=== PATIENT | female | born 1975 | race Caucasian/White ===

== ENCOUNTER → 2023-04-27 07:02 | Outpatient (REF) | payer OTHER, SELFPAY | LOC: HWRCS 07:02 | PROVIDERS: ATTENDING PHYSICIAN Nurse Practitioner | DX: I36.1 Nonrheumatic tricuspid (valve) insufficiency (principal); I27.20 Pulmonary hypertension, unspecified | CPT/HCPCS: 93306 ==

== ENCOUNTER → 2023-09-17 09:19 | Outpatient (REF) | payer OTHER, SELFPAY | LOC: HWRAD 09:19 | PROVIDERS: ATTENDING PHYSICIAN Obstetrics & Gynecology Gynecology; FAMILY PHYSICIAN Nurse Practitioner | DX: N93.9 Abnormal uterine and vaginal bleeding, unspecified (principal) | CPT/HCPCS: 76830; 76856 ==

== ENCOUNTER → 2024-03-01 07:09 | Outpatient (REF) | payer OTHER, SELFPAY | LOC: HWWDC 07:09 | PROVIDERS: ATTENDING PHYSICIAN Obstetrics & Gynecology Gynecology; FAMILY PHYSICIAN Nurse Practitioner | DX: Z12.31 Encounter for screening mammogram for malignant neoplasm of breast (principal) | CPT/HCPCS: 77063; 77067 ==

== ENCOUNTER 2024-03-15 09:36 | Emergency (ER) | payer OTHER, SELFPAY ==
[2024-03-15 09:41] VITALS: BP 133/70
[2024-03-15 09:46] LABS: Glucose - Point of Care 152 mg/dl (70-99)
--- NOTE | 2024-03-15 10:09 | ED.GENMED ---
ED Provider Triage
-
Patient seen by provider in Triage?: Seen in Triage
Attestation: A medical screening examination has been initiated by a qualified medical provider. Based on the assessment performed at this time, it has been determined that an emergent medical condition may exist and the patient has been informed
that further medical evaluation and possible additional diagnostic testing may be needed.
HPI: 48yoF here after a fall. Tripped and fell forward at 7am. Struck head, no LOC. Seen by school nurse and BP low so sent to urgent care. Subsequently referred to ED. C/o nausea. Maramec like she had to pass out in triage but denies dizziness
currently. Denies headache.
GENERAL: Alert , in no apparent distress
EYE: No visual abnormalities.
NECK: Trachea midline
ENT: No visible abnormalities.
LUNGS: No acute respiratory distress
NEUROLOGICAL: Alert and oriented
SKIN: Skin intact. No visible changes.
MUSCULOSKELETAL: Moving extremities normally
PSYCH: Normal and appropriate interaction.
This is a medical evaluation conducted in person to initiate diagnostic evaluation and provide initial therapeutics. Please see further documentation by the treating clinician.
Frontal abrasions on exam. Tdap UTD. Patient denies headache and GCS 15. Will defer head imaging in triage.
History of Present Illness
General
Chief Complaint: Head Injury
Source: patient
Exam Limitations: none
Time Seen by Provider: 03/15/24 11:11
History of Present Illness
History of Present Illness:
48yoF with no significant past medical history presenting for evaluation after a fall. Patient was walking into school this morning around 7 AM. She tripped and fell forward striking her head and left outstretched hand and left knee. No loss of
consciousness. Patient was seen by the school nurse afterwards and her blood pressure was reportedly low. She was told to go to urgent care for evaluation. Urgent care subsequently referred her to the ED. Patient currently complains of some
nausea. She has some mild soreness in her forehead and the location of some abrasions. She denies any headache, vomiting, dizziness, visual changes, neck pain. She is not on any blood thinners. Tdap UTD.
Past History
Social History
Tobacco: Non-smoker
Personal:
Living: with family
Employment: Employed
Phy Exam
General Physical Exam
General Presentation: well appearing and no apparent distress
General age: appears stated age
General Skin: warm and dry
General Habitus: normal
General Mental: alert
ENT Exam
ENT Exam: normocephalic and other (No cervical spine tenderness. )
Additional ENT: Forehead abrasions noted. None that require suture repair.
Eye Exam
Eye Exam: PERRL
Neurological Exam
Neurological Exam: alert and no motor deficits
[place] Coma Scale
Eye Opening: Spontaneous
Verbal Response: Oriented
Motor Response: Obeys Commands
GCS Total Score: 15
Musculoskeletal Exam
Musculoskeletal Exam: other (Abrasion noted to L knee)
Skin Exam
Skin Exam: normal color and warm/dry
Psychiatric Exam
Psychiatric Exam: normal mood/affect
Course
Orders/Labs/Results
Orders:
Abnormal Lab Results
03/15/24
09:45
POC Glucose 152 H mg/dl
(70-99)
Vital Signs
Initial and Last Documented VS:
Initial Vital Signs
Temp Pulse Resp BP Pulse Ox
98.7 F 79 16 133/70 98
03/15/24 09:41 03/15/24 09:41 03/15/24 09:41 03/15/24 09:41 03/15/24 09:41
Last Documented Vital Signs
Temp Pulse Resp BP Pulse Ox
98.7 F 79 16 133/70 98
03/15/24 09:41 03/15/24 09:41 03/15/24 09:41 03/15/24 09:41 03/15/24 09:41
MDM/Problems Addressed
Differential Diagnosis Includes:
48yoF here after a fall with head strike. No LOC. Has some forehead abrasions. C/o nausea. Denies headache, vomiting, dizziness. Patient is well-appearing in no acute distress. Vital signs are stable. No other external signs of head trauma. GCS
is 15 and there are no focal neuro deficits. Cervical spine cleared via Nexus criteria.
Patient was initially seen in triage and reassessed 1 hour later. Patient reports improvement in her symptoms and is requesting discharge. Very low clinical suspicion of intracranial hemorrhage/skull fracture. Will defer head imaging at this time,
patient in agreement with this. Wounds cleaned and dressed by nursing staff. Advised follow-up EP and strict ED return precautions discussed. She was discharged in stable condition.
*Critical Care Note
Total Time (30-74mins, 75-104mins- exclusive of procedures): Not Applicable
ED Attending Note
-
Portions of this chart may have been created with voice recognition software.� Occasional wrong word or��sound alike� substitutions may have occurred due to the inherent limitations of voice recognition software.
Discharge Plan
Departure
Patient Disposition: Home (Routine Discharge)
Date of Disposition: 03/15/24
Time of Disposition: 11:18
Patient with high blood pressure during this ER visit?: No
Discharge Problem:
Closed head injury, Abrasion of face, Abrasion of left knee
Instructions: Head injury in adults
Prescriptions:
No Action
hydrocodone-acetaminophen 5 MG/500 MG tablet
1 tab PO .Q4-6HPRN PRN (Reason: PAIN) Qty: 20 0RF
Stand Alone Forms: Return to Work
Activity Restrictions/Additional Instructions:
Take Tylenol and ibuprofen as needed for pain. Apply ice to affected area.
Please follow-up with your family doctor. Return to the ER with any worsening symptoms, severe headache, or confusion.
Interventions
Interventions:
*Risk Screen - Suicide Last Done: 03/15/24 09:41
*General Assessment Last Done: 03/15/24 11:15
*Neglect/Abuse Screening Last Done: 03/15/24 09:41
ED- Fall Risk Assessment Last Done: 03/15/24 11:42
*ED COVID-19 Vaccine History Last Done: 03/15/24 11:15
*Nursing Disposition Last Done: 03/15/24 11:42
ED- Neurological Assessment Last Done: 03/15/24 11:15
ED-Skin Assessment Last Done: 03/15/24 11:24
Discharge Date and Time
Discharge Date/Time: 03/15/24 11:35
Print Language: SUDANESE
== END 2024-03-15 11:35 | disposition home or self-care (01) ==
LOC: EMR 09:36
PROVIDERS: EMERGENCY PHYSICIAN Emergency Medicine; FAMILY PHYSICIAN Nurse Practitioner
DX: S00.81XA Abrasion of other part of head, initial encounter (principal); S80.212A Abrasion, left knee, initial encounter; W01.0XXA Fall on same level from slipping, tripping and stumbling without subsequent striking against object, initial encounter
CPT/HCPCS: 99283; 82962